=== PATIENT | male | born 1965 | race Caucasian/White ===

== ENCOUNTER 2018-05-31 16:57 | Emergency (ER) | payer BC, OTHER ==
[2018-05-31] MEDS ORDERED: TETANUS/DIPHTHERIA/PERTUSSIS 0.5 ML SYRINGE IM ONE (17:10)
[2018-05-31] MEDS ORDERED: HYDROmorphone 1 MG/ML CARPUJECT IVP STA (17:10)
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
--- NOTE | 2018-05-31 17:50 | XRAY Report ---
Reason: knee inj- I doubt you'll be able to do all 4 views Procedure Date: 05/31/2018 Accession Number: [id number] / [id number] Procedure: XR - Knee 4 View LT CPT Code: FULL RESULT: EXAM: LEFT KNEE RADIOGRAPHY EXAM DATE: 05/31/2018 05:31 PM. CLINICAL HISTORY: Left knee injury. COMPARISON: None available. TECHNIQUE: 6 views. FINDINGS: There is an acute, comminuted transverse fracture through the mid patella. The superior and inferior poles are distracted with a fracture gap measuring approximately 2.1 cm. There is a moderate lipohemarthrosis. No additional acute fracture or dislocation visualized. Intramedullary fitz in the tibia bridging a chronic, healed fracture of the distal tibial metadiaphysis, which appears intact. There are chronic fractures of the left fibula. Prepatellar soft tissue swelling. IMPRESSION: Acute, comminuted, and distracted left patellar fracture as described. RADIA
[2018-05-31 18:13] LABS: BASOPHILS % (AUTO) 0.6 %; EOSINOPHILS % (AUTO) 0.6 %; LYMPHOCYTES # (AUTO) 0.9 10^3/uL (1.5-3.5); LYMPHOCYTES % (AUTO) 12.6 %; MEAN CORPUSCULAR HEMOGLOBIN 33.8 pg (27.0-31.0); MEAN CORPUSCULAR HGB CONC 35.6 g/dL (32.0-36.0); MEAN PLATELET VOLUME 8.2 fL (7.4-11.4); MONOCYTES # (AUTO) 0.4 10^3/uL (0.0-1.0); MONOCYTES % (AUTO) 5.7 %; NEUTROPHILS # (AUTO) 5.8 10^3/uL (1.5-6.6); NEUTROPHILS % (AUTO) 80.5 %; PLT - PLATELET COUNT 234 10^3/uL (130-450); RED BLOOD COUNT 4.15 10^6/uL (4.70-6.10); RED CELL DISTRIBUTION WIDTH 12.8 % (12.0-15.0); WHITE BLOOD COUNT 7.2 x10^3/uL (4.8-10.8)
[2018-05-31] MEDS ORDERED: BACITRACIN OINT TOP ONE (18:14)
[2018-05-31 18:31] LABS: INR 1.1 (0.8-1.2); PT - PROTHROMBIN TIME 12.8 secs (9.9-12.6)
[2018-05-31 18:37] LABS: ALBUMIN 4.1 g/dL (3.2-5.5); ALBUMIN/GLOBULIN RATIO 1.4 (1.0-2.2); BILIRUBIN,TOTAL 0.4 mg/dL (0.2-1.0); CALCIUM 8.9 mg/dL (8.5-10.3)
[2018-05-31 19:15] VITALS: BP 145/79
== END 2018-05-31 19:15 | disposition home or self-care (01) ==
LOC: ED 16:57
DX: S82.042A Displaced comminuted fracture of left patella, initial encounter for closed fracture (principal); S00.31XA Abrasion of nose, initial encounter; W22.8XXA Striking against or struck by other objects, initial encounter; Y93.89 Activity, other specified; Y92.009 Unspecified place in unspecified non-institutional (private) residence as the place of occurrence of the external cause; Z23 Encounter for immunization
CPT/HCPCS: 36415; 73564; 80053; 83690; 85025; 85610; 90471; 90715; 96374; 99283; A9270; J1170

== ENCOUNTER 2018-06-02 06:05 | Day surgery (SDC) | payer BC, OTHER ==
[2018-06-02] MEDS ORDERED: ceFAZolin 2 GM/50 ML 2 GM/50 ML BAG IV ONE (06:34)
[2018-06-02] MEDS ORDERED: LACTATED RINGERS 1,000 ML IV ONE ×4 (06:55→13:02)
--- NOTE | 2018-06-02 07:17 | ANESTHESIA ---
Pre-Anesthesia VS, & Labs - Diagnosis L patella comminuted transverse fx - Procedure ORIF L patella Height 6 ft 2 in Weight (kg) 91 kg Body Mass Index 25.7 - NPO >8 hours Home Medications and Allergies Allergies/Adverse Reactions: Allergies Allergy/AdvReac Type Severity Reaction Status Date / Time No Known Drug Allergies Allergy Verified 05/31/18 17:32 Anes History & Medical History - Medical History Cardiovascular: reports: None Gastrointestinal: reports: None Urinary: reports: None Musculoskeletal: reports: None Endocrine/Autoimmune: reports: None Skin: reports: None Smoking Status: Never smoker - Surgical History General: Appendectomy Exam General: Alert, Oriented x3, Cooperative Dental: WNL Mouth Openin Fingerbreadth Neck Mobility: Normal Mallampati classification: II Thyromental Distance: greater than 6 cm Respiratory: Lungs clear, Normal breath sounds Cardiovascular: Regular rate Neurological: Normal speech Mental/Cognitive Status: Alert/Oriented X3 Plan Anesthesia Type: General, Femoral Block Consent for Procedure(s) Verified and Reviewed: Yes Code Status: Attempt Resuscitation ASA classification: 2-Mild systemic disease Is this case an emergency?: No
[2018-06-02] MEDS ORDERED: BUPIVACAINE 0.5% PF 30 ML VIAL ONE (07:22)
[2018-06-02] MEDS ORDERED: PROPOFOL 200 MG/20 ML VIAL IVP ONE (08:28)
[2018-06-02] MEDS ORDERED: ACETAMINOPHEN 1,000 MG/100 ML 100 ML IV ONE (08:28)
[2018-06-02] MEDS ORDERED: HYDROmorphone 1 MG/ML SYRINGE IVP ONE (08:28)
[2018-06-02] MEDS ORDERED: ONDANSETRON 4 MG/2 ML VIAL IVP ONE (08:28)
[2018-06-02] MEDS ORDERED: SODIUM CHLORIDE 0.9% 10 ML VIAL IV ONE (08:28)
[2018-06-02] MEDS ORDERED: KETOROLAC 30 MG/ML VIAL IVP ONE (08:28)
[2018-06-02] MEDS ORDERED: MIDAZOLAM 2 MG/2 ML VIAL IVP ONE (08:28)
[2018-06-02] MEDS ORDERED: LIDOCAINE-MPF 2% 5 ML VIAL IM ONE (08:28)
[2018-06-02] MEDS ORDERED: DEXAMETHASONE 4 MG/ML VIAL IVP ONE (08:28)
[2018-06-02] MEDS ORDERED: SUCCINYLCHOLINE 200 MG/10 ML VIAL IVP ONE (08:28)
[2018-06-02] MEDS ORDERED: fentaNYL 100 MCG/2 ML VIAL IVP ONE (08:28)
[2018-06-02] MEDS ORDERED: BUPIVACAINE 0.5% PF 30 ML VIAL SUBQ ONE ×2 (08:33→11:00)
[2018-06-02] MEDS ORDERED: oxyCODONE 5 MG TABLET PO PRN (11:44)
--- NOTE | 2018-06-02 11:45 | XRAY Report ---
Reason: ORIF LT PATELLA Procedure Date: 06/02/2018 Accession Number: [id number] / [id number] Procedure: XR - Knee 2 View LT CPT Code: FULL RESULT: Fluoroscopic guidance of the knee 06/02/2018 No comparison Indication ORIF TECHNIQUE: Intraoperative fluoroscopic views Number of images 4 Total fluoroscopy time 30 seconds FINDINGS: Intraoperative views demonstrate ORIF of the patella. IMPRESSION: Fluoroscopic guidance provided for patellar ORIF
--- NOTE | 2018-06-02 11:47 | XRAY Report ---
Reason: LEFT PATELLA ORIF Procedure Date: 06/02/2018 Accession Number: [id number] / [id number] Procedure: FL - OR C-Arm Procedure CPT Code: FULL RESULT: EXAM: FLUOROSCOPIC GUIDANCE EXAM DATE: 06/02/2018 07:34 AM. CLINICAL HISTORY: LEFT PATELLA ORIF. COMPARISON: None. FINDINGS: Fluoroscopic views demonstrate ORIF of the patella. IMPRESSION: Fluoroscopic guidance provided for Dr. Williamson. Total fluoroscopy time: 30 seconds. Number of images: 4. JERRY
[2018-06-02] MEDS ORDERED: HYDROmorphone 0.5 MG/0.5 ML SYRINGE ONE (12:08)
[2018-06-02] MEDS: ONDANSETRON 4 MG/2 ML VIAL IVP PRN ×2 (12:11→12:49)
[2018-06-02] MEDS ORDERED: ONDANSETRON 4 MG/2 ML VIAL ONE ×2 (12:12→12:47)
[2018-06-02] MEDS: HYDROmorphone 1 MG/ML CARPUJECT ONE ×2 (13:02→13:30)
[2018-06-02 15:06] VITALS: BP 147/76
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
== END 2018-06-02 06:06 | disposition home or self-care (01) ==
LOC: SDS 06:05
PROVIDERS: ATTEND Orthopaedic Surgery Sports Medicine
PROC: 0QSF04Z Reposition Left Patella with Internal Fixation Device, Open Approach (ICD-10-PCS; principal; 2018-06-02 07:30)
DX: S82.042A Displaced comminuted fracture of left patella, initial encounter for closed fracture (principal); Z87.891 Personal history of nicotine dependence
CPT/HCPCS: 27524; 73560; C1713; J0131; J0330; J0690; J1170; J7120